=== PATIENT | female | born 1990 ===

== ENCOUNTER 2024-10-20 08:09 | Outpatient (CLI) | payer OTHER ==
[~2024-10-20 08:09] MED LIST: ANTICONCEPTIVOS
== END 2024-10-20 08:23 | disposition home or self-care (01) ==
LOC: MAMO-SONO 08:09
DX: M54.41 Lumbago with sciatica, right side (principal); N63.10 Unspecified lump in the right breast, unspecified quadrant; Z80.3 Family history of malignant neoplasm of breast; Z12.31 Encounter for screening mammogram for malignant neoplasm of breast; M72.2 Plantar fascial fibromatosis
CPT/HCPCS: 73721